=== PATIENT | female | born 1965 | race Caucasian/White ===

== ENCOUNTER 2018-01-14 11:33 | Emergency (ER) | payer MEDICAID ==
[2018-01-14 13:37] VITALS: BP 133/71
[2018-01-14] MEDS ORDERED: Sodium Chloride 0.9% 1,000 ML IV SCH (14:00)
--- NOTE | 2018-01-16 11:45 | ER ---
DATE SEEN: 01/14/2018 TIME SEEN: The patient was seen at 1135 hours. HISTORY OF PRESENT ILLNESS: This 52-year-old woman, nonsmoker, had experienced an episode of dizziness at 1100 hours this morning. She had finished watching a parade, been sitting in a car, drinking coffee, latte, with her . She had had breakfast and experienced an episode of diaphoresis that lasted 15 to 20 minutes. The outdoor temperature was 75 degrees degrees. No chest pain, shortness of breath, cough. She did experience dizziness, anf felt "weak and foggy." She denied having any abdominal pain. She had mild nausea. No vomiting. PAST MEDICAL HISTORY: Significant for , 1, para 0-0-1. 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 She has been treated for hypertension with lisinopril. CURRENT MEDICATIONS: 1. Flonase. 2. Zyrtec. 3. Aspirin. 4. Calcium carbonate. 5. Tylenol. 6. Atorvastatin. 7. Montelukast. 8. Lisinopril. The patient denies she has asthma. She is taking asthma medicines, so it is a bit puzzling to me why she says she does not have asthma. REVIEW OF SYSTEMS: Negative. GENERAL: She denies any compromised vision or blurred vision. She did have a black scotoma, "black spots in my eyes," with this episode above when she was sitting in the car and felt the fogginess, weakness, and dizziness. She did not fall. No history of head injury or neck injury or motor vehicle accident. CARDIORESPIRATORY: As above. GASTROINTESTINAL: No vomiting, diarrhea, constipation, blood in the stool, black tarry stool, or change in her bowels. She had mild nausea with the above episode. GENITOURINARY: Denies frequency, urgency, or dysuria. MUSCULOSKELETAL: See note above regarding total hip arthroplasty of right knee and SCIPHE right hip and left hip, is bilateral. NEUROLOGIC: Negative. No seizures, and she has "done well after stroke." Denies paresis or weakness after stroke. PHYSICAL EXAMINATION: VITAL SIGNS: Blood pressure 133/71, heart rate 48, respirations 18, oxygen saturation 100%, and temperature 36.6 degrees centigrade. GENERAL: Alert, slightly overweight woman, in mild distress. She feels slightly anxious. Face is flushed (new). HEAD AND NECK: No bruits in neck. Pharynx is without abnormality. No cervical adenopathy, thyromegaly, or masses in the neck. No murmur is transmitted to the neck. No tracheal tug or tracheal deviation. Her eyegrounds is normal. Retinal arteries are normal and hearing is appropriate. Neck is supple. LUNGS: Clear without rales or rhonchi. HEART: S1 and S2. Bradycardia. No murmur. ABDOMEN: Soft. No guarding. No abdominal discomfort. EXTREMITIES: Lower extremities without pedal edema. Deep tendon reflexes in upper and lower extremities are symmetrical, 1+ normoactive. Cranial nerves II through XII are intact. Negative Romberg. No pronator drift and no dysmetria. No weakness in the upper and lower extremities. I can pull her entire body down the cart with dorsiflexion of her ankles with her active resistance. She has good muscle strength in upper and lower extremities. LABORATORY STUDIES AND DIAGNOSTICS: CT of the head did not reveal any abnormalities. She has an EKG. Heart rate is 48 with AV junctional noted. The QT is increased. Troponin is negative. D-dimer is negative. Electrolytes are normal with a laboratory borderline low potassium, sodium 143, potassium 3.2, chloride 104, CO2 of 28, BUN 17, creatinine 0.7, and BUN-creatinine ratio of 24; the latter suggests dehydration and alkaline phosphatase 37. Troponin is 0.017. Hemoglobin is normal at 14.9, hematocrit is 43, and white count 5900, PMNs 64, lymphocytes 26, and monos 7. ASSESSMENT AND PLAN: The patient's status had been discussed with the accounting assistant, Dr. Chavez at [facility]. He felt that the patient was under hydrated and that was the cause of bradycardia.(This seemed counterintuitive) since I would expect to have tachycardia as opposed to bradycardia, but he felt she was vasovagal. He chose not to accept the patient transfer. Because of this, I felt that the patient may further study for evaluation of pacemaker and a MRI of her head. With her previous CVA (several years ago), her EKG had an arrhythmia of bigeminy. This is very suggestive that she,at that time, already had significant vasculopathy/ cardiovascular disease. Consequently, I feel she needs further evaluation of cardiac, GI, and neurological status. She needs an MRI to make sure she has no new CVA. Mary will be transferred to [facility] for further evaluation and a MRI, as we do not have the capacity to perform an MRI today . It will be 3 days before and MRI could be done in this hospital. The patient will be transferred by ambulance to [facility], and has been accepted by Dr. Pike, hospitalist. /[id number] ALYSSA/DANITA WHITE
== END 2018-01-14 15:55 ==
LOC: FB.ED 11:33
DX: R00.1 Bradycardia, unspecified (principal); J44.9 Chronic obstructive pulmonary disease, unspecified; J30.9 Allergic rhinitis, unspecified; E78.5 Hyperlipidemia, unspecified; Z79.899 Other long term (current) drug therapy
CPT/HCPCS: 36415; 70450; 80053; 84484; 85025; 85379; 85610; 85730; 93005; 96360; 99285; J7030